=== PATIENT | male | born 1970 | race Caucasian/White ===

== ENCOUNTER 2018-04-23 13:49 | Emergency (ER) | payer SELFPAY ==
[2018-04-23 13:59] VITALS: BP 138/88; PULSE 72; TEMP 98.1; BMI 36.3
[2018-04-23] MEDS ORDERED: KETOROLAC TROMETHAMINE 60 MG/2 ML VIAL IM ONE (14:16)
[2018-04-23] MEDS ORDERED: KETOROLAC TROMETHAMINE 60 MG/2 ML VIAL ONE (14:18)
--- NOTE | 2018-04-23 14:31 | PDOC ---
History of Present Illness - General Chief Complaint: Pain Stated Complaint: PAIN Time Seen by Provider: 04/23/18 14:05 History Source: Patient Exam Limitations: No Limitations - History of Present Illness Initial Comments: 04/23/18 14:18 48 yr male with c/o low back pain for 3 weeks getting progressively worse now radiating down left leg. 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 Pt denies direct or specific trauma. saw PMD yesterday taking tylenol #3, flexeril and dexamethasone. Pt states no relief from one dose of medicine. no urine or bowel dysfunction, no abd pain no fever or chills. no PMHX. Past History - Past Medical History Allergies/Adverse Reactions: Allergies Allergy/AdvReac Type Severity Reaction Status Date / Time No Known Allergies Allergy Verified 04/23/18 13:59 Home Medications: Ambulatory Orders No Home Medications 0 dose .ROUTE UTDICT 08/05/13 CVA: No COPD: No HTN: Yes - Suicide/Smoking/Psychosocial Hx Smoking Status: No Smoking History: Never smoked Have you smoked in the past 12 months: No Information on smoking cessation initiated: No Hx Alcohol Use: No Drug/Substance Use Hx: No Substance Use Type: None Trauma Specific PMHX - Complaint Specific PMHX Arthritis: No Back Injury: No Neck Injury: No Hx Sacro Iliac Joint Dysfunction: No Review of Systems - Review of Systems Able to Perform ROS?: Yes Is the patient limited Romanian proficient: No Constitutional: No: Symptoms Reported HEENTM: No: Symptoms Reported Respiratory: No: Symptoms reported Cardiac (ROS): No: Symptoms Reported ABD/GI: No: Symptoms Reported : No: Symptoms Reported Musculoskeletal: Yes: Symptoms Reported, Back Pain *Physical Exam - Vital Signs Last Vital Signs Temp Pulse Resp BP Pulse Ox 98.1 F 72 18 138/88 96 04/23/18 13:56 04/23/18 13:56 04/23/18 13:56 04/23/18 13:56 04/23/18 13:56 - Physical Exam General Appearance: Yes: Nourished, Appropriately Dressed HEENT: positive: EOMI, RUBEN Neck: positive: Supple. negative: Tender lateral, Tender midline Respiratory/Chest: positive: Lungs Clear, Normal Breath Sounds Cardiovascular: positive: Regular Rhythm, Regular Rate Gastrointestinal/Abdominal: positive: Normal Bowel Sounds, Soft Musculoskeletal: positive: Normal Inspection, Decreased Range of Motion, Other ( lumbar soft tissue tenderness , neg spinal tenderness). negative: Muscle Spasm , Vertebral Tenderness Extremity: positive: Normal Capillary Refill, Normal Inspection, Normal Range of Motion, Other (left leg raise positive) Integumentary: positive: Normal Color, Dry, Warm Neurologic: positive: Fully Oriented, Alert, Normal Mood/Affect, Normal Response , Motor Strength 5/5 ED Treatment Course - RADIOLOGY Radiology Studies Ordered: Category Date Time Status SPINE-LUMBAR ONLY [RAD] Stat Radiology 04/23/18 14:16 Ordered Medical Decision Making - Medical Decision Making 04/23/18 14:34 cc: lumbar pain radiates to left buttock and thigh no urine or bowel dysfunction no saddle anesthesia pt ambulating steady gait will give toradol xray lumbar spine strict follow up with neurosurgeon *DC/Admit/Observation/Transfer Diagnosis at time of Disposition: Back pain Qualifiers: Back pain location: low back pain Chronicity: acute Back pain laterality: left Sciatica presence: with sciatica Sciatica laterality: sciatica of left side Qualified Code(s): M54.42 - Lumbago with sciatica, left side - Discharge Dispostion Disposition: HOME Condition at time of disposition: Good - Referrals Referrals: Jesse Kingston MD [Staff Physician] - Tr Holguin MD [Staff Physician] - - Patient Instructions Printed Discharge Instructions: DI for Back Pain With Sciatica Additional Instructions: follow with one of the doctors listed below call today to make appointment continue taking the medication you have been prescribed apply ice every 2hrs for 20 minutes then apply warm compresses, warm heating pad to low back return to ER for any worsening pain unable to walk, urinating or having bowel movements uncontrolled, or any other complaints. siga con celio de los mdicos que figuran a continuacin llame hoy para hacer yasmany jolynn Contina tomando el medicamento que te recetaron aplicar hielo cada 2 horas kushal 20 minutos luego aplique compresas tibias, almohadilla trmica caliente a la parte baja de la espalda regresar a la mariana de emergencias por cualquier dolor que empeore y que no pueda caminar, orinar o evacuar incontroladamente, o cualquier otra molestia. Print Language: IRISH - Post Discharge Activity
== END 2018-04-23 14:48 | disposition home or self-care (01) ==
LOC: JERFT 13:49
PROC: 3E0233Z Introduction of Anti-inflammatory into Muscle, Percutaneous Approach (ICD-10-PCS; principal; 2018-04-23)
DX: M54.42 Lumbago with sciatica, left side (principal)
CPT/HCPCS: 72100-TC-FY; 99281-25

== ENCOUNTER 2018-04-25 22:13 | Inpatient (IN) | payer OTHER ==
--- NOTE | 2018-04-25 23:10 | PDOC ---
History of Present Illness - General Chief Complaint: Pain Stated Complaint: PAIN Time Seen by Provider: 04/25/18 22:21 History Source: Patient - History of Present Illness Initial Comments: 04/25/18 23:48 Best Contact: PCP: Clinic Pmhx: N/A Pshx:N/A Allergies:NKDA FH:NONE Social Hx: Cigarettes/ 0 Alcohol/ Social Drugs/0 LMP: N/A 48-year-old male presents to the ER with his family complaining of left-sided low back pain. Pain is described as 10/10 sharp intermittent discomfort radiating down the lateral left leg to the knee and is exacerbated on movement. Patient states E he is unable to ambulate without excruciating pain but she denies any recent fall, trauma. He denies fever, chills, dizziness, lightheadedness, neck stiffness/pain, chest pain, shortness of breath, abdominal pains, flank pains, urinary symptoms, bladder or bowel dysfunction, extremity numbness or tingling sensation. Patient was seen in the emergency department recently and at the clinic and was discharged On Flexeril 5 mg twice a day, Tylenol with codeine every 6 hours, Decadron 0.75 mg twice a day with no relief. Past History - Past Medical History Allergies/Adverse Reactions: Allergies Allergy/AdvReac Type Severity Reaction Status Date / Time No Known Allergies Allergy Verified 04/25/18 22:19 Home Medications: Ambulatory Orders No Home Medications 0 dose .ROUTE UTDICT 08/05/13 CVA: No COPD: No DVT: No HTN: Yes - Suicide/Smoking/Psychosocial Hx Smoking Status: No Smoking History: Never smoked Have you smoked in the past 12 months: No Information on smoking cessation initiated: No Hx Alcohol Use: No Drug/Substance Use Hx: No Substance Use Type: None Trauma Specific PMHX - Complaint Specific PMHX Arthritis: No Back Injury: No Neck Injury: No Hx Sacro Iliac Joint Dysfunction: No Review of Systems - Review of Systems Able to Perform ROS?: Yes Comments:: 04/25/18 23:53 CONSTITUTIONAL: Absent: fever, chills, diaphoresis, generalized weakness, malaise, loss of appetite HEENT: Absent: rhinorrhea, nasal congestion, throat pain, throat swelling, difficulty swallowing, mouth swelling, ear pain, eye pain, visual Changes CARDIOVASCULAR: Absent: chest pain, loss of consciousness, palpitations, irregular heart rate, peripheral edema RESPIRATORY: Absent: cough, shortness of breath, dyspnea with exertion, orthopnea, wheezing, stridor, hemoptysis GASTROINTESTINAL: Absent: abdominal pain, abdominal distension, nausea, vomiting, diarrhea, constipation, melena, hematochezia GENITOURINARY: Absent: dysuria, frequency, urgency, hesitancy, hematuria, flank pain, genital pain MUSCULOSKELETAL: +Left LBP radiating to lat left leg down to the knee Negative Saddle anesthesia Negative bladder or bowel dysfunction Negative extremity numbness or tingling sensation Absent: myalgia, arthralgia, joint swelling SKIN: Absent: rash, itching, pallor HEMATOLOGIC/IMMUNOLOGIC: Absent: easy bleeding, easy bruising, lymphadenopathy, frequent infections ENDOCRINE: Absent: unexplained weight gain, unexplained weight loss, heat intolerance, cold intolerance NEUROLOGIC: Absent: headache, focal weakness or paresthesias, dizziness, unsteady gait, seizure, mental status changes, bladder or bowel incontinence PSYCHIATRIC: Absent: anxiety, depression, suicidal or homicidal ideation, hallucinations. Is the patient limited Solomon Islander proficient: No *Physical Exam - Vital Signs Last Vital Signs Temp Pulse Resp BP Pulse Ox 98.9 F 70 18 139/69 100 04/25/18 22:16 04/25/18 22:16 04/25/18 22:16 04/25/18 22:16 04/25/18 22:16 - Physical Exam Comments: 04/25/18 23:54 GENERAL: Well developed, well nourished. Awake and alert. No acute distress. HEENT: Normocephalic, atraumatic. PERRLA, EOMI. No conjunctival pallor. Sclera are non- icteric. Moist mucous membranes. Oropharynx is clear. NECK: Supple. Full ROM. No JVD. Carotid pulses 2+ and symmetric, without bruits. No thyromegaly. No lymphadenopathy. CARDIOVASCULAR: Regular rate and rhythm. No murmurs, rubs, or gallops. Distal pulses are 2+ and symmetric. PULMONARY: No evidence of respiratory distress. Lungs clear to auscultation bilaterally. No wheezing, rales or rhonchi. ABDOMINAL: Soft. Non-tender. Non-distended. No rebound or guarding. No organomegaly. Normoactive bowel sounds. MUSCULOSKELETAL Left parabertebral pain +SLR 30 degrees 2 point discrimination intact/paperclip Normal range of motion at all joints. No bony deformities or tenderness. No CVA tenderness. EXTREMITIES: No cyanosis. No clubbing. No edema. No calf tenderness. SKIN: Warm and dry. Normal capillary refill. No rashes. No jaundice. NEUROLOGICAL: Alert, awake, appropriate. Cranial nerves 2-12 intact. No deficits to light touch and temperature in face, upper extremities and lower extremities. No motor deficits in the in face, upper extremities and lower extremities. Normoreflexic in the upper and lower extremities. Normal speech. Toes are down- going bilaterally. Pt having difficulty ambulating PSYCHIATRIC: Cooperative. Good eye contact. Appropriate mood and affect. ED Treatment Course - LABORATORY CBC & Chemistry Diagram: 04/26/18 00:10 04/26/18 00:10 - RADIOLOGY Radiograph Interpretation: 04/26/18 04:43 CT LS spine w/o contrast: No fracture. There is a mild degenerative retrolisthesis of L2 on L3. There are severe and degenerative changes at L2-3 this with a small bulging disc osteophyte complex which results in mild narrowing of the central canal and both neural foraminal. There is a anterior left epidural mass between L3-4 and L4-5 disc likely representing an extruded disc herniation, unclear from L3-4 or L4-5 disc causing moderate narrowing of the central canal and severe narrowing of the recess. There is a small disc bulge at L4-5 with mild facet joint arthrosis which causes mild to moderate central canal and bilateral no foraminal narrowing. L5-S1 disc demonstrates minimal bulging of lateral osteophyte bridging resulting in mild bilateral foraminal narrowing. Progress Note - Progress Note Progress Note: 0501hrs: Microblogged hospitalist admit for intractable LBP/ HNP *DC/Admit/Observation/Transfer Diagnosis at time of Disposition: Intractable low back pain Back pain Qualifiers: Back pain location: low back pain Chronicity: acute Back pain laterality: left Sciatica presence: with sciatica Sciatica laterality: sciatica of left side Qualified Code(s): M54.42 - Lumbago with sciatica, left side - Discharge Dispostion Condition at time of disposition: Stable Decision to Admit order: Yes - Referrals Referrals: Tr Holguin MD [Staff Physician] - - Patient Instructions Additional Instructions: Avoid heavy lifting Continue taking her medications for your back pain Follow-up with the neurosurgeon listed on your discharge Return back for severe/persistent or worsening symptoms, bladder or bowel dysfunction Print Language: ROMANIAN - Post Discharge Activity
[2018-04-25] MEDS ORDERED: KETOROLAC TROMETHAMINE 60 MG/2 ML VIAL IM ONE (23:23)
[2018-04-25] MEDS ORDERED: ONDANSETRON 4 MG/2 ML VIAL IVPUSH ONE (23:24)
[2018-04-25] MEDS ORDERED: morphine CARPU-JECT 2 MG/1 ML DISP.SYRIN IVPUSH ONE (23:24)
[2018-04-25 23:44] LABS: URINE APPEARANCE CLEAR; URINE BILIRUBIN NEGATIVE (<2.0 mg/dL); URINE COLOR LTYELLOW; URINE GLUCOSE (UA) NEGATIVE (NEGATIVE); URINE KETONE NEGATIVE (NEGATIVE); URINE LEUK ESTERASE NEGATIVE (NEGATIVE); URINE NITRITE NEGATIVE (NEGATIVE); URINE PROTEIN NEGATIVE (NEGATIVE); URINE UROBILINOGEN NEGATIVE mg/dL (0.2-1.0)
[2018-04-25] MEDS ORDERED: KETOROLAC TROMETHAMINE 60 MG/2 ML VIAL ONE (23:54)
[2018-04-25] MEDS ORDERED: ONDANSETRON 4 MG/2 ML VIAL ONE (23:54)
[2018-04-26 00:28] LABS: BASO % 0.9 % (0-2.0); EOS % 0.6 % (0-4.5); HEMATOCRIT 42.3 % (35.4-49); HEMOGLOBIN 14.4 GM/dL (11.7-16.9); LYMPH % 16.6 % (8-40); MCH 30.9 pg (25.7-33.7); MCHC 34.1 g/dl (32.0-35.9); MEAN CELL VOLUME 90.8 fl (80-96); MONO % 6.8 % (3.8-10.2); NEUT % 75.1 % (42.8-82.8); PLATELET COUNT 307 K/MM3 (134-434); RBC 4.66 M/mm3 (4.00-5.60); RDW 13.3 % (11.9-15.9); WHITE BLOOD COUNT 10.4 K/mm3 (4.0-10.0)
[2018-04-26] MEDS ORDERED: morphine SULFATE 4 MG/ML VIAL ONE (00:42)
[2018-04-26 00:49] LABS: ALBUMIN 4.1 g/dl (3.4-5.0); ALK PHOS 74 U/L (45-117); ANION GAP 8 (8-16); BILIRUBIN,TOTAL 0.4 mg/dL (0.2-1.0); BLOOD UREA NITROGEN 22 mg/dL (7-18); CALCIUM 9.3 mg/dL (8.5-10.1); CHLORIDE 102 mmol/L (98-107); CO2 28 mmol/L (21-32); CREATININE 0.9 mg/dL (0.7-1.3); GLUCOSE,RANDOM 180 mg/dL (74-106); POTASSIUM 4.2 mmol/L (3.5-5.1); SGOT/AST 21 U/L (15-37); SGPT/ALT 61 U/L (12-78); SODIUM 138 mmol/L (136-145); TOT PROT 7.9 g/dl (6.4-8.2)
[2018-04-26] MEDS ORDERED: morphine CARPU-JECT 2 MG/1 ML DISP.SYRIN IVPUSH ONE ×2 (01:57→05:10)
[2018-04-26] MEDS ORDERED: CYCLOBENZAPRINE HCL 10 MG TABLET (FP) PO ONE (01:57)
[2018-04-26] MEDS ORDERED: CYCLOBENZAPRINE HCL 10 MG TABLET (FP) ONE ×2 (03:45→16:21)
[2018-04-26] MEDS ORDERED: MORPHINE SULFATE 2 MG/ML VIAL ONE ×4 (03:45→19:46)
--- NOTE | 2018-04-26 05:50 | PN ---
Teaching Attending Note Name of Resident: Tomi Barlow ATTENDING PHYSICIAN STATEMENT I saw and evaluated the patient. I reviewed the resident's note and discussed the case with the resident. I agree with the resident's findings and plan as documented. SUBJECTIVE: Patient is 48 year old man with diet controlled NIDDM who presents to the ER complaining of left-sided low back pain that has been getting worse for past 1 month. Pain is described as 10/10 sharp intermittent discomfort radiating down the lateral left leg to the knee and is exacerbated on movement. Patient states he is unable to ambulate without excruciating pain but she denies any recent fall, trauma. 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 He denies fever, chills, dizziness, lightheadedness, neck stiffness/pain, chest pain, shortness of breath, abdominal pains, flank pains, urinary symptoms, bladder or bowel dysfunction, extremity numbness or tingling sensation. Patient was seen in the ER on 04/23/18 and discharged with Flexeril 5 mg twice a day, Tylenol with codeine every 6 hours, Decadron 0.75 mg twice a day with no relief. OBJECTIVE: Alert and in pain Vital Signs Period Temp Pulse Resp BP Sys/Jeffrey Pulse Ox Last 24 Hr 98.9 F 70 18 139/69 100 HEENT: No Jaundice, eye redness or discharge, PERRLA, EOMI. Normocephalic, atraumatic. External ears are normal and hearing is grossly intact. No nasal discharge. Neck: Supple, nontender. No palpable adenopathy or thyromegaly. No JVD Chest: Good effort. Clear to auscultation and percussion. Heart: Regular. No S3, rub or murmur Abdomen: Not distended, soft, nontender and no HSM. No rebound or guarding. Normoactive bowel sounds. Ext: Peripheral pulses intact. No leg edema. Skin: Warm and dry. No petechiae, rash or ecchymosis. Neuro: Alert. Oriented x3. CN 2-12 grossly intact. Tender lumbosacral area. Sensation grossly intact in all four extremities and DTR are symmetric. Home Medications Medication Instructions Recorded No Home Medications 0 dose .ROUTE UTDICT 08/05/13 Abnormal Lab Results 04/26/18 04/26/18 00:10 00:10 WBC 10.4 H BUN 22 H Random Glucose 180 H D ASSESSMENT AND PLAN: 1. Intractable Low Back Pain - May have been exacerbated by lifting heavy objects at work. He has abnormal lumbosacral CT spine with mild degenerative retrolisthesis of L2 on L3. There are severe and degenerative changes at L2-3 with a small bulging disc osteophyte complex which results in mild narrowing of the central canal and both neural foraminal. There is a anterior left epidural mass between L3-4 and L4-5 disc likely representing an extruded disc herniation , unclear from L3-4 or L4-5 disc causing moderate narrowing of the central canal and severe narrowing of the recess. There is a small disc bulge at L4-5 with mild facet joint arthrosis which causes mild to moderate central canal and bilateral no foraminal narrowing. L5-S1 disc demonstrates minimal bulging of lateral osteophyte bridging resulting in mild bilateral foraminal narrowing. No fracture noted. Will treat with prednisone 40 mg po qd, protonix 40 mg po qd, IV mophine 2mg q 4 hours PRN, warm compress and lidoderm patch. Get a lumbosacral MRI and consult Neurology and PT. Implement fall precautions. 2. Hyperglycemia - Will check HbA1c to ascertain whether he needs to resume drug therapy for DM. 3. Obesity - Will provide patient all the necessary assistance, counseling and positive reinforcement to facilitate weight loss. Consult proof clerk. 4. DVT prophylaxis - Heparin 5000u sq tid. 5. Advance directives - Full code
[2018-04-26] MEDS ORDERED: MORPHINE SULFATE 2 MG/ML VIAL IVPUSH PRN ×2 (06:18→08:25)
--- NOTE | 2018-04-26 06:31 | HP ---
CHIEF COMPLAINT: lower back pain PCP: HISTORY OF PRESENT ILLNESS: Pt. says that the pain began around a month ago. 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 He took a motrin and said that the pain went away. A few weeks later the pain returned and he took some more Motrin but the pain did not go away. He came to the ER and was given some pain medications( dexamethasone, tylenol 3 and flexeril) that did not mitigate the pain at all. Pt. returned to the ER on the 04/25/18 because the pain had increased in severity 07/15, unable to sleep and was unable to walk around much. Pt. endorsed passing urine and stool. Pt. denied bowel or bladder incontinence. ER course was notable for: (1)CT Scan (2)Morphine and Toradol (3) Recent Travel: Did not ask PAST MEDICAL HISTORY: Previously diagnosed with Diabetes but per PCP does not need medication anymore. PAST SURGICAL HISTORY: None Social History: Smoking: No Alcohol:No Drugs: No Family History: Non-contributory Allergies No Known Allergies Allergy (Verified 04/25/18 22:19) HOME MEDICATIONS: Home Medications Medication Instructions Recorded No Home Medications 0 dose .ROUTE UTDICT 08/05/13 REVIEW OF SYSTEMS CONSTITUTIONAL: Absent: fever, chills, diaphoresis, generalized weakness, malaise, loss of appetite, weight change HEENT: Absent: rhinorrhea, nasal congestion, throat pain, throat swelling, difficulty swallowing, mouth swelling, ear pain, eye pain, visual changes CARDIOVASCULAR: Absent: chest pain, syncope, palpitations, irregular heart rate, lightheadedness , peripheral edema RESPIRATORY: Absent: cough, shortness of breath, dyspnea with exertion, orthopnea, wheezing, stridor, hemoptysis GASTROINTESTINAL: Absent: abdominal pain, abdominal distension, nausea, vomiting, diarrhea, constipation, melena, hematochezia GENITOURINARY: Absent: dysuria, frequency, urgency, hesitancy, hematuria, flank pain, genital pain MUSCULOSKELETAL: back pain Absent: myalgia, arthralgia, joint swelling, , neck pain SKIN: Absent: rash, itching, pallor HEMATOLOGIC/IMMUNOLOGIC: Absent: easy bleeding, easy bruising, lymphadenopathy, frequent infections ENDOCRINE: Absent: unexplained weight gain, unexplained weight loss, heat intolerance, cold intolerance NEUROLOGIC: Absent: headache, focal weakness or paresthesias, dizziness, unsteady gait, seizure, mental status changes, bladder or bowel incontinence PSYCHIATRIC: Absent: anxiety, depression, suicidal or homicidal ideation, hallucinations. PHYSICAL EXAMINATION Vital Signs - 24 hr 04/25/18 04/26/18 22:16 05:34 Temperature 98.9 F 97.7 F Pulse Rate 70 Pulse Rate [ 85 Left Apical] Respiratory 18 19 Rate Blood Pressure 139/69 Blood Pressure 141/89 [Right Arm] O2 Sat by Pulse 100 98 Oximetry (%) GENERAL: Awake, alert, and fully oriented, in moderate distress. LUNGS: Breath sounds equal, clear to auscultation bilaterally. No wheezes, and no crackles. No accessory muscle use. HEART: Regular rate and rhythm, normal S1 and S2 without murmur ABDOMEN: Soft, nontender, not distended, normoactive bowel sounds, no guarding MUSCULOSKELETAL: Normal range of motion at all joints. No spinal or paraspinal tenderness. UPPER EXTREMITIES: 5/5 muscle strength, warm, well-perfused. No cyanosis. No peripheral edema. LOWER EXTREMITIES: 5/5 muscle strength, sensation to touch intact, warm, well- perfused. No calf tenderness. No peripheral edema. NEUROLOGICAL: Normal speech. PSYCHIATRIC: Cooperative. Good eye contact. Appropriate mood and affect. SKIN: Warm, dry, normal turgor, no rashes or lesions noted Laboratory Results - last 24 hr 04/25/18 04/26/18 04/26/18 23:23 00:10 00:10 WBC 10.4 H RBC 4.66 Hgb 14.4 Hct 42.3 MCV 90.8 MCH 30.9 MCHC 34.1 RDW 13.3 Plt Count 307 MPV 8.0 Absolute Neuts (auto) 7.8 Neutrophils % 75.1 Lymphocytes % 16.6 D Monocytes % 6.8 D Eosinophils % 0.6 Basophils % 0.9 Nucleated RBC % 0 Sodium 138 Potassium 4.2 Chloride 102 Carbon Dioxide 28 Anion Gap 8 BUN 22 H Creatinine 0.9 Creat Clearance w eGFR > 60 Random Glucose 180 H D Calcium 9.3 Total Bilirubin 0.4 AST 21 D ALT 61 Alkaline Phosphatase 74 Total Protein 7.9 Albumin 4.1 Urine Color Ltyellow Urine Appearance Clear Urine pH 5.0 Ur Specific [place] 1.024 Urine Protein Negative Urine Glucose (UA) Negative Urine Ketones Negative Urine Blood Negative Urine Nitrite Negative Urine Bilirubin Negative Urine Urobilinogen Negative Ur Leukocyte Esterase Negative ASSESSMENT/PLAN: 48 y.o. M w/ no significant PMHx. presents after failed outpatient management for lower back pain. #Low Back Pain - CT Lumbar spine: shows extensive DDD of L2-S1, with disc extrusion - MRI Spine shows: extensive DDD of L2-S1, with disk extrusion - morphine 2mg - f/u Neurosurgery consult - Neurology consult appreciated - fall precautions - PT - bed rest - 40 mg prednisone - 40 mg protonix -lidoderm patch #DM2 - hgbA1c- 7.2% - sliding scale #DVT PPx. - Lovenox 40mg #Dispo -Med/Surg Visit type - Emergency Visit Emergency Visit: Yes ED Registration Date: 04/26/18 Care time: The patient presented to the Emergency Department on the above date and was hospitalized for further evaluation of their emergent condition. - New Patient This patient is new to me today: Yes Date on this admission: 04/25/18 - Critical Care Critical Care patient: No Hospitalist Screening - Colonoscopy Questionnaire Colonoscopy Questionnaire: Colonoscopy Questionnaire - Patient: 50 - 75 years old and never had a screening colonoscopy: No History of colon or rectal polyps, or CA: Unknown History of IBD, Crohn's disease or UC: Unknown History of abdominal radiation therapy as a child: Unknown - Relative: 1 with colon or rectal CA, or polyps at age 60 or younger: Unknown Colon or rectal CA diagnosed at age 45 or younger: Unknown Multiple relatives with colon or rectal CA: Unknown - Outcome: Screening Result: Negative Screen
[2018-04-26] MEDS ORDERED: KETOROLAC TROMETHAMINE 30 MG/1 ML VIAL IVPUSH PRN (08:25)
[2018-04-26 09:34] LABS: BASO % 0.9 % (0-2.0); EOS % 1.1 % (0-4.5); HEMATOCRIT 41.3 % (35.4-49); HEMOGLOBIN 14.1 GM/dL (11.7-16.9); LYMPH % 20.8 % (8-40); MCHC 34.1 g/dl (32.0-35.9); MEAN CELL VOLUME 90.9 fl (80-96); MEAN PLT VOLUME 7.7 fl (7.5-11.1); MONO % 7.3 % (3.8-10.2); NEUT % 69.9 % (42.8-82.8); PLATELET COUNT 294 K/MM3 (134-434); RBC 4.54 M/mm3 (4.00-5.60); RDW 13.5 % (11.9-15.9); WHITE BLOOD COUNT 10.5 K/mm3 (4.0-10.0)
[2018-04-26 09:58] LABS: ANION GAP 8 (8-16); BILIRUBIN,TOTAL 0.5 mg/dL (0.2-1.0); BLOOD UREA NITROGEN 22 mg/dL (7-18); CALCIUM 8.9 mg/dL (8.5-10.1); CHLORIDE 102 mmol/L (98-107); CO2 29 mmol/L (21-32); CREATININE 0.9 mg/dL (0.7-1.3); GLUCOSE,RANDOM 179 mg/dL (74-106); MAGNESIUM 2.1 mg/dL (1.8-2.4); PHOSPHOROUS 4.3 mg/dL (2.5-4.9); POTASSIUM 4.1 mmol/L (3.5-5.1); SGOT/AST 20 U/L (15-37); SGPT/ALT 54 U/L (12-78); SODIUM 139 mmol/L (136-145); TOT PROT 7.8 g/dl (6.4-8.2)
[2018-04-26 09:59] LABS: ALK PHOS 70 U/L (45-117)
[2018-04-26] MEDS ORDERED: predniSONE 20 MG TABLET (UD) PO SCH (10:00)
[2018-04-26] MEDS: LIDOCAINE 5% TOPICAL PATCH TP SCH (10:31)
[2018-04-26] MEDS: PANTOPRAZOLE 40 MG TABLET (FP) PO SCH (10:31)
--- NOTE | 2018-04-26 14:49 | PN ---
Physical Exam: SUBJECTIVE: Patient seen and examined, back pain improved, able to move leg better, no new complaints. OBJECTIVE: Vital Signs Period Temp Pulse Resp BP Sys/Jeffrey Pulse Ox Last 24 Hr 97.7 F-98.9 F 70-85 18-19 139-141/69-89 98-100 GENERAL: sitting in bed in no acute distress Chest:C TAB, no rales or wheezing Abdomen: soft, obese, NT Extremities: no edema Musculoskeletal: no spinal tenderness or paraspinal muscle spasm elicited currently, SLR bilateral LE upt 60 degrees, full range, power LE 5/5, sensation intact to light touch Laboratory Results - last 24 hr 04/25/18 04/26/18 04/26/18 23:23 00:10 00:10 WBC 10.4 H RBC 4.66 Hgb 14.4 Hct 42.3 MCV 90.8 MCH 30.9 MCHC 34.1 RDW 13.3 Plt Count 307 MPV 8.0 Absolute Neuts (auto) 7.8 Neutrophils % 75.1 Lymphocytes % 16.6 D Monocytes % 6.8 D Eosinophils % 0.6 Basophils % 0.9 Nucleated RBC % 0 Sodium 138 Potassium 4.2 Chloride 102 Carbon Dioxide 28 Anion Gap 8 BUN 22 H Creatinine 0.9 Creat Clearance w eGFR > 60 Random Glucose 180 H D Hemoglobin A1c % Calcium 9.3 Phosphorus Magnesium Total Bilirubin 0.4 AST 21 D ALT 61 Alkaline Phosphatase 74 Total Protein 7.9 Albumin 4.1 Urine Color Ltyellow Urine Appearance Clear Urine pH 5.0 Ur Specific Anna 1.024 Urine Protein Negative Urine Glucose (UA) Negative Urine Ketones Negative Urine Blood Negative Urine Nitrite Negative Urine Bilirubin Negative Urine Urobilinogen Negative Ur Leukocyte Esterase Negative 04/26/18 04/26/18 04/26/18 09:10 09:10 09:10 WBC 10.5 H RBC 4.54 Hgb 14.1 Hct 41.3 MCV 90.9 MCH 31.0 MCHC 34.1 RDW 13.5 Plt Count 294 MPV 7.7 Absolute Neuts (auto) 7.3 Neutrophils % 69.9 Lymphocytes % 20.8 D Monocytes % 7.3 Eosinophils % 1.1 D Basophils % 0.9 Nucleated RBC % 0 Sodium 139 Potassium 4.1 Chloride 102 Carbon Dioxide 29 Anion Gap 8 BUN 22 H Creatinine 0.9 Creat Clearance w eGFR > 60 Random Glucose 179 H Hemoglobin A1c % 7.2 H Calcium 8.9 Phosphorus 4.3 Magnesium 2.1 Total Bilirubin 0.5 AST 20 ALT 54 Alkaline Phosphatase 70 Total Protein 7.8 Albumin 4.0 Urine Color Urine Appearance Urine pH Ur Specific Anna Urine Protein Urine Glucose (UA) Urine Ketones Urine Blood Urine Nitrite Urine Bilirubin Urine Urobilinogen Ur Leukocyte Esterase Active Medications Generic Name Dose Route Start Last Admin Trade Name Freq PRN Reason Stop Dose Admin Cyclobenzaprine HCl 5 mg 04/26/18 14:00 Flexeril - PO TID [facility] Insulin Aspart 1 vial 04/26/18 16:30 Novolog Vial Sliding Scale - SQ ACHS [facility] Protocol Ketorolac Tromethamine 15 mg 04/26/18 14:31 Toradol Injection - IVPUSH 05/01/18 08:24 Q6H PRN PAIN LEVEL 6-10 Lidocaine 1 patch 04/26/18 10:00 04/26/18 10:31 Lidoderm Patch - TP 1 patch DAILY [facility] Administration Miscellaneous 1 each 04/26/18 22:00 Lidoderm Patch Removal MC DAILY@2200 [facility] Morphine Sulfate 2 mg 04/26/18 08:25 Morphine Sulfate IVPUSH Q4H PRN PAIN LEVEL 6-10 Pantoprazole Sodium 40 mg 04/26/18 10:00 04/26/18 10:31 Protonix - PO 40 mg DAILY [facility] Administration Prednisone 30 mg 04/27/18 10:00 Deltasone - PO DAILY [facility] CT Lumbar spine results reviewed ASSESSMENT/PLAN: 48 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 -Acute low back pain with sciatia, likely acute lumbar sprain/dengerative disc disease -NIDDM Plan: Symptoms improved, standing flexeril, toradol prn. for pain and lidocaine patch. Morphine for severe pain. Prednisone. MRI L spine. Spine input if MRI concerning and symptoms fail to improve. PT eval. A1c noted. Place on BGM/ISS. Diabetic diet. DVTPPx lovenox Dispo pending clinical improvement. Plan discussed with patient in detail, all questions answered. Visit type - Emergency Visit Emergency Visit: Yes ED Registration Date: 04/26/18 Care time: The patient presented to the Emergency Department on the above date and was hospitalized for further evaluation of their emergent condition. - New Patient This patient is new to me today: Yes Date on this admission: 04/26/18 - Critical Care Critical Care patient: No - Discharge Referral Referred to [facility] Med P.C.: No
[2018-04-26] MEDS: CYCLOBENZAPRINE HCL 10 MG TABLET (FP) PO SCH ×2 (16:27→22:02)
[2018-04-26] MEDS: INSULIN SLIDING SCALE (NOVOLOG) 1 VIAL SQ SCH ×2 (18:28→22:29)
[2018-04-26] MEDS: KETOROLAC TROMETHAMINE 30 MG/1 ML VIAL IVPUSH PRN (18:41)
[2018-04-26] MEDS: MORPHINE SULFATE 2 MG/ML VIAL IVPUSH PRN (19:58)
[2018-04-26] MEDS ORDERED: ACETAMINOPHEN 325 MG TABLET (FP) PO PRN (20:22)
[2018-04-26] MEDS: LIDOCAINE PATCH REMOVAL MC SCH (22:03)
[2018-04-27] MEDS: KETOROLAC TROMETHAMINE 30 MG/1 ML VIAL IVPUSH PRN ×3 (00:51→22:44)
[2018-04-27] MEDS: CYCLOBENZAPRINE HCL 10 MG TABLET (FP) PO SCH ×3 (06:00→22:06)
[2018-04-27 06:46] LABS: BASO % 0.9 % (0-2.0); EOS % 0.8 % (0-4.5); HEMATOCRIT 41.6 % (35.4-49); HEMOGLOBIN 14.4 GM/dL (11.7-16.9); LYMPH % 16.5 % (8-40); MCH 31.4 pg (25.7-33.7); MCHC 34.7 g/dl (32.0-35.9); MEAN CELL VOLUME 90.6 fl (80-96); MEAN PLT VOLUME 7.7 fl (7.5-11.1); MONO % 6.1 % (3.8-10.2); NEUT % 75.7 % (42.8-82.8); PLATELET COUNT 294 K/MM3 (134-434); RBC 4.59 M/mm3 (4.00-5.60); RDW 13.6 % (11.9-15.9); WHITE BLOOD COUNT 12.6 K/mm3 (4.0-10.0)
[2018-04-27] MEDS: INSULIN SLIDING SCALE (NOVOLOG) 1 VIAL SQ SCH ×4 (07:00→22:09)
[2018-04-27 07:04] LABS: ANION GAP 7 (8-16); BLOOD UREA NITROGEN 22 mg/dL (7-18); CALCIUM 8.9 mg/dL (8.5-10.1); CHLORIDE 102 mmol/L (98-107); CO2 29 mmol/L (21-32); CREATININE 0.8 mg/dL (0.7-1.3); GLUCOSE,RANDOM 154 mg/dL (74-106); MAGNESIUM 2.1 mg/dL (1.8-2.4); PHOSPHOROUS 4.3 mg/dL (2.5-4.9); POTASSIUM 4.2 mmol/L (3.5-5.1); SODIUM 138 mmol/L (136-145)
[2018-04-27 09:30] VITALS: BMI 39.7
[2018-04-27] MEDS: ENOXAPARIN NA (PORCINE) 40 MG/0.4 ML DISP.SYRIN SQ SCH (09:48)
[2018-04-27] MEDS: LIDOCAINE 5% TOPICAL PATCH TP SCH (09:48)
[2018-04-27] MEDS: predniSONE 10 MG TABLET (UD) PO SCH (09:48)
[2018-04-27] MEDS: PANTOPRAZOLE 40 MG TABLET (FP) PO SCH (09:49)
--- NOTE | 2018-04-27 09:59 | CON.NEURO ---
Consult - Alcohol/Substance Use Hx Alcohol Use: No - Smoking History Smoking history: Never smoked Have you smoked in the past 12 months: No Home Medications - Allergies Allergies/Adverse Reactions: Allergies Allergy/AdvReac Type Severity Reaction Status Date / Time No Known Allergies Allergy Verified 04/25/18 22:19 - Home Medications Home Medications: Ambulatory Orders No Home Medications 0 dose .ROUTE UTDICT 08/05/13 Physical Exam-Neuro Vital Signs: Vital Signs Temperature 98.9 F 04/27/18 09:00 Pulse Rate 74 04/27/18 09:00 Respiratory Rate 20 04/27/18 09:00 Blood Pressure 143/83 04/27/18 09:00 O2 Sat by Pulse Oximetry (%) 98 04/26/18 21:00 Labs: CBC, BMP 04/27/18 06:21 04/27/18 06:21 Assessment/Plan cc Subacute low back pain , radiating to left lower extremity for ten days before hospital admission HPI 48 year old male , hsitory fo diabetes(Controlled on diet), htn complaining of Low back pain for past two weeks and recently getting worse. He denies any trauma, fever or cancer. He denies any bowel or bladder symptoms, weakness . Patient had ct scan done and it showed there is severe disc disease . He is able to walk and says pain is not getting better. PMH as above NKDA Medicatio,SH,ROS,FH reviewed in chart Neurological Examination Alert oriented x 3 CN all intact motor upper extremity 5/5 there is no weakness of hip flexion, hip extension, knee extension adn flexion, planter flexion and extension,EHL is normal There is loss of left knee reflex ( L2-3-4) Right knee reflex is normal no sensory loss SLR is mildy positive and, Mild back tenderness ct showed severe djd on l3-4-5 level Assessment- Severe L3-4 Radiculopathy, as there is is loss of left knee reflex , no motor weakness. CT showed severe djd, and mri of l spine pending Plan- continue lidoderm patch, steroid course ( 5-7 days) and opioid prn - wait for mri, IF severe disc prolapse , consider neurosurgical consult -I would consider adding gabapentin, zanflex once mri is done Thanking you so much David Archer MD
[2018-04-27] MEDS: MORPHINE SULFATE 2 MG/ML VIAL IVPUSH PRN (14:47)
--- NOTE | 2018-04-27 16:12 | PN ---
Teaching Attending Note Name of Resident: Tomi Barlow ATTENDING PHYSICIAN STATEMENT I saw and evaluated the patient. I reviewed the resident's note and discussed the case with the resident. I agree with the resident's findings and plan as documented with exceptions below. SUBJECTIVE: Patient seen and examined, still with back pain radiating down left leg, limited ambulation. No new fevers, chills, abdominal or urinary concerns. OBJECTIVE: Vital Signs Period Temp Pulse Resp BP Sys/Jeffrey Pulse Ox Last 24 Hr 98.1 F-98.9 F 74-107 18-20 139-151/80-90 98 Intake & Output 04/24/18 04/25/18 04/26/18 04/27/18 23:59 23:59 23:59 23:59 Intake Total 300 625 Balance 300 625 Weight 227 lb 203 lb 6.4 oz General: lying in bed, mild distress from pain Musculoskeletal: lower lumbar spinal tenderness, no swelling/erythema noted, SLR positive LLE ABdomen: soft, obese, NT Chest: CTAB, no rales or wheezing Extremities: no edema Active Medications Cyclobenzaprine HCl (Flexeril -) 5 mg PO TID [facility] Last Admin: 04/27/18 13:36 Dose: 5 mg Enoxaparin Sodium (Lovenox -) 40 mg SQ DAILY [facility] Last Admin: 04/27/18 09:48 Dose: 40 mg Insulin Aspart (Novolog Vial Sliding Scale -) 1 vial SQ [facility]; Protocol Last Admin: 04/27/18 11:39 Dose: Not Given Ketorolac Tromethamine (Toradol Injection -) 15 mg IVPUSH Q6H PRN PRN Reason: PAIN LEVEL 6-10 Stop: 05/01/18 08:24 Last Admin: 04/27/18 09:45 Dose: 15 mg Lidocaine (Lidoderm Patch -) 1 patch TP DAILY [facility] Last Admin: 04/27/18 09:48 Dose: 1 patch Miscellaneous (Lidoderm Patch Removal) 1 each MC DAILY@2200 [facility] Last Admin: 04/26/18 22:03 Dose: 1 each Morphine Sulfate (Morphine Sulfate) 2 mg IVPUSH Q6H PRN PRN Reason: PAIN LEVEL 6-10 Last Admin: 04/27/18 14:47 Dose: 2 mg Pantoprazole Sodium (Protonix -) 40 mg PO DAILY [facility] Last Admin: 04/27/18 09:49 Dose: 40 mg Prednisone (Deltasone -) 30 mg PO DAILY [facility] Last Admin: 04/27/18 09:48 Dose: 30 mg Laboratory Results - last 24 hr 04/26/18 04/26/18 04/27/18 17:42 22:11 06:21 WBC 12.6 H RBC 4.59 Hgb 14.4 Hct 41.6 MCV 90.6 MCH 31.4 MCHC 34.7 RDW 13.6 Plt Count 294 MPV 7.7 Absolute Neuts (auto) 9.5 Neutrophils % 75.7 Lymphocytes % 16.5 D Monocytes % 6.1 Eosinophils % 0.8 Basophils % 0.9 Nucleated RBC % 0 Sodium Potassium Chloride Carbon Dioxide Anion Gap BUN Creatinine Creat Clearance w eGFR POC Glucometer 216 166 Random Glucose Calcium Phosphorus Magnesium 04/27/18 06:21 WBC RBC Hgb Hct MCV MCH MCHC RDW Plt Count MPV Absolute Neuts (auto) Neutrophils % Lymphocytes % Monocytes % Eosinophils % Basophils % Nucleated RBC % Sodium 138 Potassium 4.2 Chloride 102 Carbon Dioxide 29 Anion Gap 7 L BUN 22 H Creatinine 0.8 Creat Clearance w eGFR > 60 POC Glucometer Random Glucose 154 H Calcium 8.9 Phosphorus 4.3 Magnesium 2.1 MRI spine results noted. 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 -Acute low back pain with sciatia, likely acute lumbar sprain/dengerative disc disease -NIDDM with likely steroid induced hyperglycemia -Leucocytosis, suspect steroid induced Plan: Neurology input noted. MRI spine with severe degenerative disc disease. Neurosurgery consult with . Pain control tylenol/flexeril/toradol/lidocaine patch. and morphine for severe pain. Trial with prednisone 30 mg daily for now. PPI while on above meds. A1c 7.2. BS 150s-200s, Continue ISS. PT eval. A1c noted. Place on BGM/ISS. Diabetic diet. DVTPPx lovenox Dispo pending clinical improvement. Plan discussed with patient in detail, all questions answered.
--- NOTE | 2018-04-27 16:46 | PN ---
Progress Note (short form) - Note Progress Note: NEUROSURGERY CONSULT H/o NIDDM c/o one month h/o left-sided low back pain. Pain is described as 10/ 10 sharp intermittent discomfort radiating from L hip/buttuck down the lateral thigh and calf worse with movement and getting up. Denies any recent fall or trauma. 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 He denies fever, bladder or bowel dysfunction, extremity weakness. + numbness L calf. PE: AF, VSS; family at bedside General- unremarkable, obese CN- intact; Motor- 5/5 B UE/LE inc EHL/TA/inv/ev/Quad/IP/gastroc; Sensation- intact LT/vibration; DTR- 1+ B LE LS spine MRI- Marked L2-3 DDD with spondylosis and kyphosis; B foramenal and central disc bulge; R > L L3-4 foramenal narrowing, L L4-5 paracentral disc herniation with small superiorly migrating disc material Symptomatic L L4-5 HNP with L L4-5 radiculopathy; L2-3 marked DDD- has not tried medical tx No associated neurological deficit thus neurosurgical intervention at this stage is not indicated nor recommened Neurontin 300 tid Pt has not tried PT or pain management and should try medical tx first Avoid heavy lifting or sudden twisting/turning Weight reduction program to decrease load on LS spine and to enhance his diabetes control
[2018-04-27] MEDS ORDERED: MELATONIN 1 MG TABLET PO ONE ×2 (16:53→22:00)
--- NOTE | 2018-04-27 16:56 | PN ---
Physical Exam: SUBJECTIVE: Patient seen and examined. Pt. c/o unrelenting back pain despite taking pain medication. Pt. wants something to help him sleep. OBJECTIVE: Vital Signs Period Temp Pulse Resp BP Sys/Jeffrey Pulse Ox Last 24 Hr 98.1 F-98.9 F 74-107 18-20 139-151/80-90 98 GENERAL: The patient is awake, alert, and fully oriented, in mild distress. LUNGS: Breath sounds equal, clear to auscultation bilaterally, no wheezes, no crackles, no accessory muscle use. HEART: Regular rate and rhythm, S1, S2 without murmur. EXTREMITIES: 5/5 muscle strength with sensation to touch in tact in all extremities, warm, well-perfused, no edema. NEUROLOGICAL: Normal speech, gait not observed d/t pain. PSYCH: Normal mood, normal affect. SKIN: Warm, dry, normal turgor Laboratory Results - last 24 hr 04/26/18 04/26/18 04/27/18 17:42 22:11 06:21 WBC 12.6 H RBC 4.59 Hgb 14.4 Hct 41.6 MCV 90.6 MCH 31.4 MCHC 34.7 RDW 13.6 Plt Count 294 MPV 7.7 Absolute Neuts (auto) 9.5 Neutrophils % 75.7 Lymphocytes % 16.5 D Monocytes % 6.1 Eosinophils % 0.8 Basophils % 0.9 Nucleated RBC % 0 Sodium Potassium Chloride Carbon Dioxide Anion Gap BUN Creatinine Creat Clearance w eGFR POC Glucometer 216 166 Random Glucose Calcium Phosphorus Magnesium 04/27/18 06:21 WBC RBC Hgb Hct MCV MCH MCHC RDW Plt Count MPV Absolute Neuts (auto) Neutrophils % Lymphocytes % Monocytes % Eosinophils % Basophils % Nucleated RBC % Sodium 138 Potassium 4.2 Chloride 102 Carbon Dioxide 29 Anion Gap 7 L BUN 22 H Creatinine 0.8 Creat Clearance w eGFR > 60 POC Glucometer Random Glucose 154 H Calcium 8.9 Phosphorus 4.3 Magnesium 2.1 Active Medications Current Medications Cyclobenzaprine HCl (Flexeril -) 5 mg PO TID [facility] Last Admin: 04/27/18 13:36 Dose: 5 mg Enoxaparin Sodium (Lovenox -) 40 mg SQ DAILY [facility] Last Admin: 04/27/18 09:48 Dose: 40 mg Insulin Aspart (Novolog Vial Sliding Scale -) 1 vial SQ ACHS [facility]; Protocol Last Admin: 04/27/18 16:48 Dose: 4 units Ketorolac Tromethamine (Toradol Injection -) 15 mg IVPUSH Q6H PRN PRN Reason: PAIN LEVEL 6-10 Stop: 05/01/18 08:24 Last Admin: 04/27/18 09:45 Dose: 15 mg Lidocaine (Lidoderm Patch -) 1 patch TP DAILY [facility] Last Admin: 04/27/18 09:48 Dose: 1 patch Melatonin (Melatonin) 1 mg PO ONCE ONE Stop: 04/27/18 22:01 Miscellaneous (Lidoderm Patch Removal) 1 each MC DAILY@2200 [facility] Last Admin: 04/26/18 22:03 Dose: 1 each Morphine Sulfate (Morphine Sulfate) 2 mg IVPUSH Q6H PRN PRN Reason: PAIN LEVEL 6-10 Last Admin: 04/27/18 14:47 Dose: 2 mg Pantoprazole Sodium (Protonix -) 40 mg PO DAILY [facility] Last Admin: 04/27/18 09:49 Dose: 40 mg Prednisone (Deltasone -) 30 mg PO DAILY [facility] Last Admin: 04/27/18 09:48 Dose: 30 mg MRI(04/27/18): Extensive DDD from L2-S1, with disc extrusion ASSESSMENT/PLAN: 48 y.o. M w/ no significant PMHx. presents after failed outpatient management for lower back pain. 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 on losing weight, not lifting heavy weights, and proper technique to lifting objects. #DM2 - hgbA1c- 7.2% - sliding scale #Insomnia - Melatonin #DVT PPx. - Lovenox 40mg #Dispo -Med/Surg Visit type - Emergency Visit Emergency Visit: Yes ED Registration Date: 04/26/18 Care time: The patient presented to the Emergency Department on the above date and was hospitalized for further evaluation of their emergent condition. - New Patient This patient is new to me today: No - Critical Care Critical Care patient: No - Discharge Referral Referred to [facility] Med P.C.: No
--- NOTE | 2018-04-27 21:32 | CONS ---
DATE OF CONSULTATION: 04/27/2018 CHIEF COMPLAINT: Lower back pain and left lower extremity sciatica. HISTORY OF PRESENT ILLNESS: The patient is a 48-year-old right-handed male with history of diabetes and hypertension, who complains of 1-month history of worsening left-sided sciatica. The pain radiates from left buttock and hip down to posterior thigh, and lateral calf. This is associated with subjective numbness of his left calf but no weakness. His pain is worse when he gets up and walks. He was in the emergency room previously and was given Tylenol with codeine, Decadron, and Flexeril which did not help him much. He has not tried any physical therapy nor has he been on a consistent course of anti-inflammatory medication nor has he tried any pain management injections. He has no bowel or bladder dysfunction. PAST MEDICAL HISTORY: Significant for type 2 diabetes and hypertension. CURRENT MEDICATIONS: Include Lidoderm patch, Deltasone, Lovenox, Flexeril, Toradol, insulin, morphine, Protonix. ALLERGIES: There is no known drug allergy. FAMILY HISTORY: Noncontributory. SOCIAL HISTORY: He does not smoke and only drinks alcohol socially. 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 REVIEW OF SYSTEMS: Otherwise negative for other major constitutional, head and neck, cardiovascular, pulmonary, gastrointestinal, genitourinary, endocrinological, neurological, and psychological problems except for the above. PHYSICAL EXAMINATION: Vital Signs: Temperature is 98.7. Blood pressure is 139/80 with pulse rate of 107. O2 saturation is 98% on room air. HEENT: Examination shows him to be normocephalic, atraumatic, anicteric. Neck: Supple with no carotid bruit. Coronary: Examination demonstrated regular rhythm. Lungs: Clear bilaterally. Abdomen: Obese but benign. Extremities: Examination showed no signs of DVT. Distal pulses are 2+. Neurologic: He is awake and alert, oriented x4. Cranial nerve examination is intact 2-12. Motor examination shows 5/5 strength including the entire left lower extremity. This includes the iliopsoas, quadriceps, thigh adductors, extensor hallucis longus, tibialis anterior, foot inversion, foot eversion, gastrocnemius , and hamstrings. Sensory examination is intact to light touch and vibratory sensation. Deep tendon reflexes are 1+ throughout. There is no pathological long tract sign. Lower Back: Paraspinal muscle spasm on the left side and left sciatic notch tenderness. He has a positive straight leg raise on the left side at 30 degrees. Gait is not tested for safety reasons. Cerebellar: Exam demonstrated intact coordination and intact [id number] examination. LABORATORY: Examination shows white blood cell count 12.6, hemoglobin is 14.4, and platelet count is 294,000. BUN is 22 and creatinine 0.8. Sodium is 138, and potassium is 4.2. Urinalysis is negative. CT scan of the lumbar spine demonstrated marked degenerative disk space narrowing at L2-3 with associated spondylosis and foraminal disk bulge as well as left L4-5 foraminal disk bulge. There are no obvious signs of lytic lesion. MRI of the lumbar spine demonstrated marked L2-3 degenerative disk disease with bilateral foraminal disk protrusion and [id number] foraminal narrowing. There is only very mild central stenosis at this level. There is minimal retrolisthesis at L2-3. L3-4 shows mild degenerative disk space changes. There is no significant canal stenosis. There is bilateral foraminal narrowing, right greater than left. There is left L4-L5 paracentral disk herniation with superiorly migrating disk fragment. There is slight impingement of thecal sac. There is no severe stenosis at this level either. Mild lateral recess stenosis and foraminal stenosis are noted at L4-5 as well. IMPRESSION: 1. Probable subacute left L4-5 paracentral disk herniation with some superiorly migrating disk material with subacute left L4-5 radiculopathy. 2. Multi-level lumbar degenerative disk disease, worse at L2-3. 3. Obesity and diabetes. 4. Hypertension. RECOMMENDATIONS: The patient presents with a 1-month history of acute onset of left-sided sciatica. His pain is worse with standing and walking. The patient denies injury from his work. He stated that this occurred at home. He is not sure what caused this current exacerbation, however. The patient has not tried any physical therapy or consistent course of anti-inflammatory medication and should do so as this is his initial presentation for medical attention. No neurosurgical intervention is recommended given the lack of paucity and neurological deficit of any kind. Specifically, he has no objective evidence of weakness, numbness, nor any reported bowel or bladder dysfunction. I took the liberty of putting him on Neurontin 300 mg p.o. t.i.d. If his pain persists, he could consider pain management injections under the care of pain management physician. The patient also needs to lose weight to decrease load on the lumbar spine and to enhance his diabetes control. The above was discussed with the patient and his extended family and friends at the bedside. All questions were answered. MARY ANN ARCE M.D. [id number] MTDD
[2018-04-27] MEDS ORDERED: PT OWN MED DRAWER 7, Y5N ONE (21:55)
[2018-04-27] MEDS: GABAPENTIN 300 MG CAPSULE (FP) PO SCH (22:08)
[2018-04-27] MEDS: LIDOCAINE PATCH REMOVAL MC SCH (22:11)
[2018-04-28] MEDS: MORPHINE SULFATE 2 MG/ML VIAL IVPUSH PRN (00:33)
[2018-04-28] MEDS: GABAPENTIN 300 MG CAPSULE (FP) PO SCH ×3 (06:14→21:26)
[2018-04-28] MEDS: CYCLOBENZAPRINE HCL 10 MG TABLET (FP) PO SCH ×3 (06:14→21:26)
[2018-04-28] MEDS: INSULIN SLIDING SCALE (NOVOLOG) 1 VIAL SQ SCH ×4 (06:19→21:30)
[2018-04-28 07:55] LABS: BASO % 0.7 % (0-2.0); EOS % 1.4 % (0-4.5); HEMATOCRIT 39.6 % (35.4-49); HEMOGLOBIN 13.4 GM/dL (11.7-16.9); LYMPH % 25.5 % (8-40); MCH 30.7 pg (25.7-33.7); MCHC 33.9 g/dl (32.0-35.9); MEAN CELL VOLUME 90.6 fl (80-96); MEAN PLT VOLUME 7.8 fl (7.5-11.1); MONO % 7.5 % (3.8-10.2); NEUT % 64.9 % (42.8-82.8); PLATELET COUNT 270 K/MM3 (134-434); RBC 4.37 M/mm3 (4.00-5.60); RDW 13.3 % (11.9-15.9); WHITE BLOOD COUNT 9.9 K/mm3 (4.0-10.0)
[2018-04-28 08:09] LABS: INR 1.09 (0.82-1.09); PROTHROMBIN TIME (PATIENT) 12.3 SEC (9.7-13.0)
[2018-04-28 08:12] LABS: ANION GAP 9 (8-16); BLOOD UREA NITROGEN 25 mg/dL (7-18); CALCIUM 8.7 mg/dL (8.5-10.1); CHLORIDE 104 mmol/L (98-107); CO2 29 mmol/L (21-32); GLUCOSE,RANDOM 123 mg/dL (74-106); POTASSIUM 3.8 mmol/L (3.5-5.1); SODIUM 142 mmol/L (136-145)
[2018-04-28 08:13] LABS: CREATININE 0.7 mg/dL (0.7-1.3)
[2018-04-28] MEDS: PANTOPRAZOLE 40 MG TABLET (FP) PO SCH (09:08)
[2018-04-28] MEDS: predniSONE 10 MG TABLET (UD) PO SCH (09:08)
[2018-04-28] MEDS: ENOXAPARIN NA (PORCINE) 40 MG/0.4 ML DISP.SYRIN SQ SCH (09:09)
[2018-04-28] MEDS: LIDOCAINE 5% TOPICAL PATCH TP SCH (09:10)
--- NOTE | 2018-04-28 10:57 | PN ---
Progress Note (short form) - Note Progress Note: 48 year old male , hsitory fo diabetes(Controlled on diet), htn complaining of Low back pain for past two weeks and recently getting worse. He denies any trauma, fever or cancer. He denies any bowel or bladder symptoms, weakness . Patient had ct scan done and it showed there is severe disc disease . He is able to walk and says pain is not getting better. He continue to have back pain and had mri of L spine and saw neurosurgery. There is disc herniation at l4-5 area. Neurological Examination Alert oriented x 3 CN all intact motor upper extremity 5/5 there is no weakness of hip flexion, hip extension, knee extension adn flexion, planter flexion and extension,EHL is normal There is loss of left knee reflex ( L2-3-4) Right knee reflex is normal no sensory loss SLR is mildy positive and, Mild back tenderness ct showed severe djd on l3-4-5 level MRI of L spine reviewed and Neurosurgery consult reviewed Assessment- Severe L3-4 Radiculopathy, as there is is loss of left knee reflex , no motor weakness. MRI of L spine and Neurosurgery consult reviewed Plan- agree with Neurosurgical assessment, He need PT and nsaid If pain persists he would need Pain management for possible LAURENT - At this time, He can be discharged from Neurological point of view and follow up outpatient Thanking you so much David Archer MD
[2018-04-28] MEDS ORDERED: oxyCODONE HCL 5 MG TABLET PO PRN (13:11)
[2018-04-28] MEDS ORDERED: ACETAMINOPHEN 325 MG TABLET (FP) PO PRN (13:11)
--- NOTE | 2018-04-28 16:10 | PN ---
Physical Exam: SUBJECTIVE: Patient seen and examined. Pt. endorses being in pain especially with ambulation. Pt. has passed urine. Pt. endorses sleeping better last night. Pt. has not had a BM. OBJECTIVE: Vital Signs Period Temp Pulse Resp BP Sys/Jeffrey Pulse Ox Last 24 Hr 98.1 F-98.7 F 74-88 18-20 122-123/71-74 95-98 GENERAL: The patient is awake, alert, in no acute distress. LUNGS: Breath sounds equal, clear to auscultation bilaterally, no wheezes, no crackles, no accessory muscle use. HEART: Regular rate and rhythm, S1, S2 without murmur ABDOMEN: Soft, nontender, nondistended, sluggish bowel sounds, no guarding EXTREMITIES: 5/5 strength b/l in LE, warm, well-perfused, no edema, no calf tenderness, abnormal gait favoring the right leg. PSYCH: Normal mood, normal affect. BACK: No spinal or paraspinal tenderness, no gross deformities Laboratory Results - last 24 hr 04/27/18 04/27/18 04/28/18 16:41 22:05 06:17 WBC RBC Hgb Hct MCV MCH MCHC RDW Plt Count MPV Absolute Neuts (auto) Neutrophils % Lymphocytes % Monocytes % Eosinophils % Basophils % Nucleated RBC % PT with INR INR Sodium Potassium Chloride Carbon Dioxide Anion Gap BUN Creatinine Creat Clearance w eGFR POC Glucometer 213 131 114 Random Glucose Calcium 04/28/18 04/28/18 04/28/18 07:30 07:30 07:30 WBC 9.9 RBC 4.37 Hgb 13.4 Hct 39.6 MCV 90.6 MCH 30.7 MCHC 33.9 RDW 13.3 Plt Count 270 MPV 7.8 Absolute Neuts (auto) 6.4 Neutrophils % 64.9 Lymphocytes % 25.5 D Monocytes % 7.5 Eosinophils % 1.4 Basophils % 0.7 Nucleated RBC % 0 PT with INR 12.30 INR 1.09 Sodium 142 Potassium 3.8 Chloride 104 Carbon Dioxide 29 Anion Gap 9 BUN 25 H Creatinine 0.7 Creat Clearance w eGFR > 60 POC Glucometer Random Glucose 123 H D Calcium 8.7 04/28/18 10:48 WBC RBC Hgb Hct MCV MCH MCHC RDW Plt Count MPV Absolute Neuts (auto) Neutrophils % Lymphocytes % Monocytes % Eosinophils % Basophils % Nucleated RBC % PT with INR INR Sodium Potassium Chloride Carbon Dioxide Anion Gap BUN Creatinine Creat Clearance w eGFR POC Glucometer 133 Random Glucose Calcium Active Medications Current Medications Acetaminophen (Tylenol -) 650 mg PO Q6H PRN PRN Reason: Fever Or Pain Cyclobenzaprine HCl (Flexeril -) 5 mg PO TID [facility] Last Admin: 04/28/18 13:29 Dose: 5 mg Enoxaparin Sodium (Lovenox -) 40 mg SQ DAILY [facility] Last Admin: 04/28/18 09:09 Dose: 40 mg Gabapentin (Neurontin -) 300 mg PO TID [facility] Last Admin: 04/28/18 13:29 Dose: 300 mg Insulin Aspart (Novolog Vial Sliding Scale -) 1 vial SQ ACHS [facility]; Protocol Last Admin: 04/28/18 10:59 Dose: Not Given Ketorolac Tromethamine (Toradol Injection -) 15 mg IVPUSH Q6H PRN PRN Reason: PAIN LEVEL 6-10 Stop: 05/01/18 08:24 Last Admin: 04/27/18 22:44 Dose: 15 mg Lidocaine (Lidoderm Patch -) 1 patch TP DAILY [facility] Last Admin: 04/28/18 09:10 Dose: 1 patch Miscellaneous (Lidoderm Patch Removal) 1 each MC DAILY@2200 [facility] Last Admin: 04/27/18 22:11 Dose: 1 each Oxycodone HCl (Roxicodone -) 5 mg PO Q6H PRN PRN Reason: PAIN LEVEL 4 - 6 Pantoprazole Sodium (Protonix -) 40 mg PO DAILY [facility] Last Admin: 04/28/18 09:08 Dose: 40 mg Prednisone (Deltasone -) 20 mg PO DAILY [facility] ASSESSMENT/PLAN: 48 y.o. M w/ no significant PMHx. presents after failed outpatient management for lower back pain. 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 on losing weight, not lifting heavy weights, and proper technique to lifting objects. #DM2 - hgbA1c- 7.2% - sliding scale - discharge on [place] - career counselor Pt. to f/u with PCP for blood work and medication adjustment as needed #Insomnia - Melatonin #DVT PPx. - Lovenox 40mg #Dispo -Med/Surg Visit type - Emergency Visit Emergency Visit: Yes ED Registration Date: 04/26/18 Care time: The patient presented to the Emergency Department on the above date and was hospitalized for further evaluation of their emergent condition. - New Patient This patient is new to me today: No - Critical Care Critical Care patient: No - Discharge Referral Referred to [facility] Med P.C.: No
--- NOTE | 2018-04-28 16:15 | PN ---
Teaching Attending Note Name of Resident: Tomi Barlow ATTENDING PHYSICIAN STATEMENT I saw and evaluated the patient. I reviewed the resident's note and discussed the case with the resident. I agree with the resident's findings and plan as documented. SUBJECTIVE:only has pain when ambulating. pain improves with pain medication. pain is 5/10 when ambulating and 1/10 at rest. denies Cp, SOB, fever, chills, N/ V/C/D OBJECTIVE: Last Vital Signs Temp Pulse Resp BP Pulse Ox 98.7 F 74 18 122/71 95 04/28/18 06:05 04/28/18 06:05 04/28/18 09:00 04/28/18 06:05 04/28/18 09:00 General NAD CV S1 S2 RRR no murmur/rub/gallop Lungs CTA B/L no wheezing/rales/rhonchi Back no bone or muscular point tenderness. +flexion at the hips Extremities sensation grossly intact, strength 5/5 on flexion/extension at the upper and lower legs. 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 1. Severe degenerative disc disease L2-L3- pain has improved. only able to ambulate 20 ft with PT, however patient does not have insurance to pay for [facility] placement. only requesting pain medications when ambulating. will transition to oral and see how to tolerates and ambulates with PT today. quick steroid taper. neuro outpatient follow up. if fails medical management may require surgical intervention. 2. DM- A1c 7.2. stopped his oral medication because he was "cured" does not know last A1c. will re-start metformin 50mg daily on discharge. diabetic diet. A1c follow up in 3 months. 3. leukcotysis- resolved. no active infection. no indication for abx at this time 4. DVT ppx- lovenox 5. will re-assess with PT today and come up with plan for discharge. due to lack of insurance is not a candidate for [facility]. spoke with SW will see if we can obtain chris PT.
[2018-04-28] MEDS: LIDOCAINE PATCH REMOVAL MC SCH (21:27)
[2018-04-29] MEDS: CYCLOBENZAPRINE HCL 10 MG TABLET (FP) PO SCH (05:30)
[2018-04-29] MEDS: GABAPENTIN 300 MG CAPSULE (FP) PO SCH ×2 (05:30→14:14)
[2018-04-29] MEDS: INSULIN SLIDING SCALE (NOVOLOG) 1 VIAL SQ SCH ×2 (06:09→11:54)
[2018-04-29 09:06] VITALS: BP 148/81; PULSE 88; TEMP 98.5
[2018-04-29] MEDS: PANTOPRAZOLE 40 MG TABLET (FP) PO SCH (09:06)
[2018-04-29] MEDS: ENOXAPARIN NA (PORCINE) 40 MG/0.4 ML DISP.SYRIN SQ SCH (09:06)
[2018-04-29] MEDS: LIDOCAINE 5% TOPICAL PATCH TP SCH (09:06)
[2018-04-29] MEDS ORDERED: predniSONE 20 MG TABLET (UD) PO SCH (10:00)
[2018-04-29] MEDS ORDERED: INSULIN (NOVOLOG) ASPART 100 UNITS/ML 10ML VIAL ONE (11:53)
--- NOTE | 2018-04-29 13:19 | PN ---
Teaching Attending Note Name of Resident: Tomi Barlow ATTENDING PHYSICIAN STATEMENT I saw and evaluated the patient. I reviewed the resident's note and discussed the case with the resident. I agree with the resident's findings and plan as documented. SUBJECTIVE:states pain is better. was able to ambulate with only small amount of pain in his leg. has intermittent numbness in his L leg. denies CP, SOB, fever, chills OBJECTIVE: Last Vital Signs Temp Pulse Resp BP Pulse Ox 98.5 F 88 18 148/81 96 04/29/18 09:00 04/29/18 09:00 04/29/18 09:00 04/29/18 09:00 04/28/18 21:00 General NAD Back no bone or muscular point tenderness. +flexion at the hips Extremities sensation grossly intact, strength 5/5 on flexion/extension at the upper and lower legs. 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 1. Severe degenerative disc disease L2-L3- pain has improved. not requesting any pain medications. was able to ambulate 55 feet with PT. due to lack of insurance is not eligible for [facility]. encourage PT outpatient, SW to work on getting chris case or if facility can work on sliding scale basis. will d/ c with several day supply of percocet for as needed. counselled on risks assoc with narcotic use and abuse potential. no driving or operating heavy machinery while using and constipation. will need to f/u with neurosugery as outpatient. will d/c flexeril. steriod taper here. 2. DM- A1c 7.2. counselled on need for diabetic diet. will start metformin once daily. A1c follow up in 3 months. 3. leukcotysis- resolved. no active infection. no indication for abx at this time 4. DVT ppx- lovenox 5. d/c home with RW. [facility] Reference #: [id number]
== END 2018-04-29 16:35 | disposition home or self-care (01) | DRG 347 ==
LOC: JER 22:13 → JERBED 04-26 05:11 → J6S 04-27 08:19
PROVIDERS: ADMIT Internal Medicine; ATTEND Internal Medicine
DX: M51.26 Other intervertebral disc displacement, lumbar region (principal); M54.5 Low back pain; E66.9 Obesity, unspecified; Z68.39 Body mass index [BMI] 39.0-39.9, adult; D72.829 Elevated white blood cell count, unspecified; G47.00 Insomnia, unspecified; M47.9 Spondylosis, unspecified; M40.209 Unspecified kyphosis, site unspecified; E11.65 Type 2 diabetes mellitus with hyperglycemia
CPT/HCPCS: 36415; 72131-TC; 72148-TC; 80048; 80053; 81003; 82962; 83036; 83735; 84100; 85025; 85610; 97116-GP; 99285-25

== ENCOUNTER 2023-08-23 20:59 | Emergency (ER) | payer OTHER ==
[2023-08-23 21:09] VITALS: BP 144/74; PULSE 78; RESP 18; TEMP 98.6; BMI 37.8
[2023-08-23] MEDS ORDERED: LIDOCAINE 5% TOPICAL PATCH TP ONE (21:23)
[2023-08-23] MEDS ORDERED: LIDOCAINE 4% PATCH TP ONE (21:44)
[2023-08-23] MEDS ORDERED: diazePAM 5 MG TABLET PO ONE (21:57)
[2023-08-23] MEDS ORDERED: LIDOCAINE PATCH REMOVAL MC SCH (22:00)
[2023-08-23] MEDS ORDERED: diazePAM 5 MG TABLET ONE (22:17)
== END 2023-08-23 23:28 | disposition home or self-care (01) ==
LOC: JER 20:59
DX: M54.50 Low back pain, unspecified (principal); S39.012A Strain of muscle, fascia and tendon of lower back, initial encounter; M25.561 Pain in right knee; M25.562 Pain in left knee; X58.XXXA Exposure to other specified factors, initial encounter; Y93.01 Activity, walking, marching and hiking; Y99.0 Civilian activity done for income or pay
CPT/HCPCS: 72070-TC-FY; 72100-TC-FY; 99283-25